=== PATIENT | female | born 1975 | race Caucasian/White ===

== ENCOUNTER 2016-11-17 08:00 | Outpatient (CLI) | payer MEDICAID | END 2016-11-17 23:59 | disposition home or self-care (01) | LOC: LAB.R 08:00 | PROVIDERS: ATTEND Nurse Practitioner Family | DX: L03.115 Cellulitis of right lower limb (principal) | CPT/HCPCS: 87070; 87205 ==

== ENCOUNTER 2017-04-17 10:59 | Outpatient (CLI) | payer MEDICAID ==
--- NOTE | 2017-04-22 11:02 | XRAY Report ---
INDICATION: Community-acquired pneumonia. EXAMINATION: TWO-VIEW CHEST: 04/17/2017 INDICATION: Community acquired pneumonia. COMPARISON: 09/20/2015, chest CT 10/20/2015. FINDINGS: Frontal and lateral views of the chest demonstrate a normal cardiac silhouette. The lungs are clear. No effusion or pneumothorax is present. The infiltrate and effusion seen on 09/20/2015 have resolved. IMPRESSION: NORMAL CHEST. TD: 04/17/2017 13:40 [facility]
== END 2017-04-17 11:00 | disposition home or self-care (01) ==
LOC: DI.S 10:59
PROVIDERS: ATTEND Nurse Practitioner Family
DX: J18.9 Pneumonia, unspecified organism (principal)
CPT/HCPCS: 71020

== ENCOUNTER 2018-04-15 07:36 | Outpatient (CLI) | payer MEDICAID ==
--- NOTE | 2018-04-15 09:52 | CT Report ---
Reason: PULMONARY NODULE Procedure Date: 04/15/2018 Accession Number: [id number] / [id number] Procedure: CT - Chest W/O CPT Code: FULL RESULT: EXAM: CT CHEST EXAM DATE: 04/15/2018 07:57 AM. CLINICAL HISTORY: Pulmonary nodule. COMPARISONS: Chest w/contrast 10/20/2015 8:17 AM. TECHNIQUE: Routine helical CT imaging was performed through the chest. IV contrast: None. Reconstructions: Coronal and sagittal. In accordance with CT protocol optimization, one or more of the following dose reduction techniques were utilized for this exam: automated exposure control, adjustment of mA and/or KV based on patient size, or use of iterative reconstructive technique. FINDINGS: Lungs/Pleura: The previously seen stellate nodularity in the left lingula is stable compared to 2016, and therefore established as scarring, a benign finding. Both the lingula and right middle lobe demonstrate subtle bronchiectasis with interval development of scant consolidative and tree-in-bud changes, as well as a small amount of atelectasis versus scarring in the right middle lobe. A few scattered pulmonary nodules measuring 3 mm or less are without evidence of spiculation or surrounding groundglass component are noted. There is no mass, pleural effusion or pneumothorax. Mediastinum: Normal. No adenopathy or masses. The heart and great vessels are normal. Bones: Unremarkable. Visualized Abdomen: Unremarkable. Other: None. IMPRESSION: Scarring in the lingula. Similar changes have developed in the interval in the right middle lobe, possibly postinfectious findings. Scattered pulmonary nodules measuring 3 mm or less without suspicious features. Recommend follow-up of the described nodule(s) according to the following guidelines: Fleischner Society Recommendations 2017 MacMahon et al. Radiology 2017 Solid Nodules-Low Risk Patients: <6 mm (single or multiple) - No routine follow-up* Solid Nodules-High Risk Patients: <6 mm (single or multiple) -Optional CT at 12 months* *Nodules < 6mm do not require routine follow-up, but suspicious nodule morphology, upper lobe location, or both may warrant 12 month follow-up RADIA
== END 2018-04-15 07:37 | disposition home or self-care (01) ==
LOC: DI 07:36
PROVIDERS: ATTEND Nurse Practitioner Family
DX: R91.8 Other nonspecific abnormal finding of lung field (principal)
CPT/HCPCS: 71250

== ENCOUNTER 2020-07-28 09:23 | Outpatient (CLI) | payer MEDICAID | END 2020-07-28 09:24 | disposition home or self-care (01) | LOC: LAB 09:23 | PROVIDERS: ATTEND Midwife | DX: O20.0 Threatened abortion (principal) | CPT/HCPCS: 36415; 84702 ==

== ENCOUNTER 2020-08-05 11:30 | Outpatient (CLI) | payer MEDICAID ==
--- NOTE | 2020-08-05 12:58 | Ultrasound Report ---
PROCEDURE: OB First Trimester w/TV INDICATIONS: SUPERVISION OF OUTSIDE/PRIOR DATING DATA: Last menstrual period (LMP): 06/18/2020. LMP-based estimated date of delivery (WILLIAMS): 03/25/2021. First dating scan (date and location): Today's scan; [facility]. Estimated date of delivery (WILLIAMS) from first dating scan: 04/01/2021. TECHNIQUE: Real-time scanning was performed of the fetus and maternal pelvic organs, with image documentation. Endovaginal scanning was also performed to better visualize the fetus and maternal ovaries. COMPARISON: None. FINDINGS: Embryo: There is single intrauterine gestational sac with mean sac diameter of 0.9 cm. Additionally, there is a identified pole for which the crown-rump length measures 0.3 cm, corresponding with an estimated gestational age of 5 weeks 6 days. heart tones are present measuring 100 bpm. Als o, there is a yolk sac present. Measurement variability in dating: +/- 4 weeks by LMP, +/- 7 days by mean sac diameter (use before 6 weeks gestation if crown-rump length not able to be measured), +/- 5 days by crown-rump length (6-12 weeks gestation). Maternal organs: The right ovary measures 5.1 x 3.3 x 2.9 cm, containing a 2.9 x 2.6 x 2.5 cm cyst. A long the inner margin of the cyst, there is a 0.5 x 1 cm soft tissue projection into the lumen of the cyst. No measurable internal vascularity. Left ovary measures 2.5 x 2.4 x 1.9 cm. Normal Doppler mary earance of the ovaries. IMPRESSION: 1. Single living intrauterine gestation with heart rate of 100 bpm. Estimated gestational age b y crown-rump length is 5 weeks 6 days. 2. Right ovarian 2.9 cm cyst with soft tissue component along the inner margin. Given the lack of vas cularity, this likely represents atypical appearance of a retractile clot from a prior hemorrhagic cy st. However, given the unlikely but potential alternative process of a soft tissue growth within the ovary; central supply aide evaluation and follow-up ultrasound targeting the right ovary is recommended in a pproximately 6 weeks. Reviewed by: Dennis York on 08/05/2020 11:57 AM AKDT Approved by: Dennis York on 08/05/2020 11:57 AM TIFFANY Station ID: [id number]
== END 2020-08-05 11:31 | disposition home or self-care (01) ==
LOC: DI 11:30
PROVIDERS: ATTEND Midwife
DX: O26.841 Uterine size-date discrepancy, first trimester (principal); O34.81 Maternal care for other abnormalities of pelvic organs, first trimester; N83.201 Unspecified ovarian cyst, right side; Z3A.01 Less than 8 weeks gestation of pregnancy

== ENCOUNTER 2020-09-25 19:32 | Outpatient (CLI) | payer MEDICAID ==
--- NOTE | 2020-09-26 17:41 | Ultrasound Report ---
PROCEDURE: Pelvic w/Transvaginal INDICATIONS: RIGHT OVARIAN CYST TECHNIQUE: Real-time scanning was performed of the pelvic organs, with image documentation. Additional endovagi nal scanning was necessary due to incomplete visualization of the adnexal and endometrial structures by transabdominal scanning. COMPARISON: None. FINDINGS: No pathologic free abdominal or pelvic fluid. Uterus: Uterus is anteverted and measures 8.9 x 3.5 x 4.9 cm. The endometrium measures 1.3 cm in co mbined thickness. There is mild heterogeneity of the endometrium. No internal vascularity on color D oppler interrogation. There is a midline posterior subserosal fibroid measuring 0.7 x 0.7 x 0.8 cm. Ovaries: The right ovary measures 1.7 x 2.5 x 1.7 cm and the left ovary measures 4.1 x 2 x 2.3 cm. T here is a thick-walled heterogeneous cyst within the left ovary with internal septations measuring up to 2.9 x 1.5 x 2.8 cm. Peripheral vascularity demonstrated on color Doppler interrogation. Findings likely represent a hemorrhagic cyst. There is a thin-walled cyst within the right ovary measuring up to 1.4 x 1.2 x 1.2 cm which is not well visualized but likely represents a follicular cyst. IMPRESSION: 1. Slight thickening and heterogeneity of the endometrium without definite internal vascularity to allen ggest retained products of conception. 2. Complex left ovarian cyst likely representing a hemorrhagic cyst. Consider follow-up ultrasound in 6 weeks to demonstrate resolution. 3. Small right ovarian cyst not well visualized but likely representing a follicular cyst. Reviewed by: Adam Aguila MD on 09/26/2020 5:39 PM PDT Approved by: Adam Aguila MD on 09/26/2020 5:39 PM PDT Station ID: [id number]
== END 2020-09-25 19:33 | disposition home or self-care (01) ==
LOC: DI 19:32
PROVIDERS: ATTEND Midwife
DX: R93.89 Abnormal findings on diagnostic imaging of other specified body structures (principal); N83.292 Other ovarian cyst, left side; N83.201 Unspecified ovarian cyst, right side

== ENCOUNTER 2020-10-10 08:56 | Outpatient (CLI) | payer MEDICAID | END 2020-10-10 08:57 | disposition home or self-care (01) | LOC: LAB 08:56 | PROVIDERS: ATTEND Midwife | DX: O73.1 Retained portions of placenta and membranes, without hemorrhage (principal) | CPT/HCPCS: 36415; 84702 ==

== ENCOUNTER 2020-10-12 08:49 | Outpatient (CLI) | payer MEDICAID | END 2020-10-12 08:50 | disposition home or self-care (01) | LOC: LAB 08:49 | PROVIDERS: ATTEND Midwife | DX: O03.9 Complete or unspecified spontaneous abortion without complication (principal) | CPT/HCPCS: 36415; 84702 ==

== ENCOUNTER 2020-10-14 11:44 | Outpatient (CLI) | payer MEDICAID | END 2020-10-14 11:45 | disposition home or self-care (01) | LOC: LAB 11:44 | PROVIDERS: ATTEND Midwife | DX: O73.1 Retained portions of placenta and membranes, without hemorrhage (principal) | CPT/HCPCS: 36415; 84702 ==

== ENCOUNTER 2021-01-24 08:57 | Outpatient (CLI) | payer MEDICAID ==
[2021-01-24 14:34] LABS: BASOPHILS % (AUTO) 0.6 %; EOSINOPHILS # (AUTO) 0.1 10^3/uL (0.0-0.7); EOSINOPHILS % (AUTO) 2.5 %; HCT - HEMATOCRIT 43.1 % (37.0-47.0); HGB - HEMOGLOBIN 13.9 g/dL (12.0-16.0); LYMPHOCYTES # (AUTO) 1.1 10^3/uL (1.5-3.5); LYMPHOCYTES % (AUTO) 22.3 %; MEAN CORPUSCULAR HEMOGLOBIN 31.3 pg (27.0-31.0); MEAN CORPUSCULAR HGB CONC 32.3 g/dL (32.0-36.0); MEAN CORPUSCULAR VOLUME 97.1 fL (81.0-99.0); MONOCYTES # (AUTO) 0.5 10^3/uL (0.0-1.0); MONOCYTES % (AUTO) 10.7 %; NEUTROPHILS # (AUTO) 3.1 10^3/uL (1.5-6.6); NEUTROPHILS % (AUTO) 63.7 %; PLT - PLATELET COUNT 238 10^3/uL (130-450); RED BLOOD COUNT 4.44 10^6/uL (4.20-5.40); RED CELL DISTRIBUTION WIDTH 12.1 % (12.0-15.0); WHITE BLOOD COUNT 4.9 x10^3/uL (4.8-10.8)
[2021-01-24 15:15] LABS: ALBUMIN 4.3 g/dL (3.2-5.5); ALBUMIN/GLOBULIN RATIO 1.5 (1.0-2.2); ALKALINE PHOSPHATASE 64 IU/L (42-121); ALT ALANINE AMINOTRANSFERASE 20 IU/L (10-60); AST ASPARTATE AMINOTRANSFERASE 21 IU/L (10-42); BILIRUBIN,TOTAL 0.7 mg/dL (0.2-1.0); BUN - BLOOD UREA NITROGEN 10 mg/dL (6-20); CALCIUM 9.1 mg/dL (8.5-10.3); CARBON DIOXIDE - CO2 28 mmol/L (21-32); CHLORIDE 103 mmol/L (101-111); CHOL/HDL RATIO 2.5 (<4.4); CHOLESTEROL 182 mg/dL; CREATININE 0.7 mg/dL (0.4-1.0); GFR - MDRD 91 (>89); GLUCOSE 94 mg/dL (70-100); HDL CHOLESTEROL 72 mg/dL; LDL CHOLESTEROL,CALCULATED 98 mg/dL; LDL/HDL RATIO 1.4 (<4.4); POTASSIUM 3.9 mmol/L (3.5-5.0); SODIUM 138 mmol/L (135-145); TOTAL PROTEIN 7.2 g/dL (6.7-8.2); TRIGLYCERIDES 61 mg/dL; VLDL CHOLESTEROL 12 mg/dL
[2021-01-24 15:16] LABS: THYROID STIMULATING HORMONE 2.39 uIU/mL (0.34-5.60)
== END 2021-01-24 08:58 | disposition home or self-care (01) ==
LOC: LAB.S 08:57
PROVIDERS: ATTEND Registered Nurse
DX: F41.1 Generalized anxiety disorder (principal); F10.10 Alcohol abuse, uncomplicated
CPT/HCPCS: 36415; 80053; 80061; 83721; 84443; 85025